=== PATIENT | female | born 1995 | race Caucasian/White ===

== ENCOUNTER → 2017-12-04 | Outpatient (CLI) | payer BC | LOC: M RAD 17:24 | DX: Z34.82 Encounter for supervision of other normal pregnancy, second trimester (principal) ==

== ENCOUNTER → 2018-01-23 | Outpatient (CLI) | payer BC | LOC: M RAD 17:11 | DX: Z34.82 Encounter for supervision of other normal pregnancy, second trimester (principal); Z36.89 Encounter for other specified antenatal screening; Z3A.27 27 weeks gestation of pregnancy | CPT/HCPCS: 76816 ==

== ENCOUNTER → 2018-03-03 | Outpatient (CLI) | payer BC | LOC: M RAD 11:39 | DX: O36.5932 Maternal care for other known or suspected poor fetal growth, third trimester, fetus 2 (principal); Z3A.31 31 weeks gestation of pregnancy | CPT/HCPCS: 76816 ==

== ENCOUNTER → 2018-04-02 | Outpatient (CLI) | payer BC | LOC: M RAD 17:20 | DX: O09.293 Supervision of pregnancy with other poor reproductive or obstetric history, third trimester (principal); Z3A.35 35 weeks gestation of pregnancy | CPT/HCPCS: 76816 ==

== ENCOUNTER → 2018-04-03 | Outpatient (REF) | payer BC | LOC: M LAB REF 17:03 | DX: Z34.83 Encounter for supervision of other normal pregnancy, third trimester (principal); Z3A.00 Weeks of gestation of pregnancy not specified | CPT/HCPCS: 87186 ==

== ENCOUNTER 2018-04-18 03:53 | Inpatient (IN) | payer BC ==
[2018-04-18] MEDS ORDERED: LR 1,000 ML IV (04:35)
[2018-04-18] MEDS: BICITRA 30ML SOLN UDC PO (04:45)
[2018-04-18 04:51] LABS: HEMATOCRIT 41.1 % (36.0-47.0); HEMOGLOBIN 13.8 g/dl (12.0-15.5); MEAN CORPUSCULAR HEMOGLOBIN 28.3 pg (27.0-33.0); MEAN CORPUSCULAR HGB CONC 33.6 g/dl (32.0-36.5); MEAN CORPUSCULAR VOLUME 84.4 fl (80.0-96.0); PLATELET COUNT, AUTOMATED 292 10^3/uL (150-450); RED BLOOD COUNT 4.87 10^6/uL (4.00-5.40); RED CELL DISTRIBUTION WIDTH 14.5 % (11.5-14.5); WHITE BLOOD COUNT 13.6 10^3/uL (4.0-10.0)
[2018-04-18 05:16] LABS: ALT/SGPT 39 U/L (12-78); AST/SGOT 17 U/L (7-37); BILIRUBIN,TOTAL 0.4 MG/DL (0.2-1.0); CREATININE FOR GFR 0.63 MG/DL (0.55-1.30); GLOMERULAR FILTRATION RATE > 60.0 (>60); LDH LACTATE DEHYDROGENASE 155 U/L (84-246); URIC ACID 4.8 MG/DL (2.6-6.0)
[2018-04-18] MEDS ORDERED: NALBUPHINE HCL 10 MG/ML AMP (J2300) IV ×2 (06:11→07:30)
[2018-04-18] MEDS ORDERED: METOCLOPRAMIDE INJ 10MG/2ML VIAL (J2765) IV (06:11)
[2018-04-18] MEDS ORDERED: ONDANSETRON 4MG/2ML VIAL (J2405) IV ×2 (06:11→07:30)
[2018-04-18] MEDS ORDERED: NALOXONE INJ 0.4 MG/1 ML VIAL (J2310) IV ×2 (06:11)
[2018-04-18] MEDS ORDERED: MORPHINE PRES-FREE INJ 10 MG/10 ML VIAL (J2274) As Ordered (06:32)
[2018-04-18] MEDS ORDERED: fentaNYL 100 MCG/2 ML INJECTION (J3010) As Ordered (06:32)
[2018-04-18] MEDS ORDERED: PHENYLephrine HCL 500 MCG/5 ML (100MCG/ML) SYRINGE (J2370) As Ordered (06:32)
[2018-04-18] MEDS ORDERED: OXYTOCIN INJ 10 UNITS/ML VIAL (J2590) As Ordered ×3 (06:32)
[2018-04-18] MEDS ORDERED: KETOROLAC 60 MG/2 ML VIAL (J1885) As Ordered (06:32)
[2018-04-18] MEDS ORDERED: ONDANSETRON 4MG/2ML VIAL (J2405) As Ordered (06:32)
[2018-04-18] MEDS ORDERED: fentaNYL 250 MCG/5 ML INJECTION (J3010) As Ordered (06:32)
[2018-04-18 07:27] LABS: CORD GAS ABE V -4.3; CORD GAS HCO3 V 21.1 MEQ/L; CORD GAS O2 SAT V 50.2 %; CORD GAS PCO2 V 40.1 mmHg; CORD GAS PH V 7.339 UNITS; CORD GAS PO2 V 23.6 mmHg; CORD GAS SBC V 19.7 MEQ/L; CORD GAS TCO2 V 22.3 MEQ/L
[2018-04-18] MEDS ORDERED: fentaNYL 100 MCG/2 ML INJECTION (J3010) IV (07:30)
[2018-04-18 07:31] LABS: CORD GAS ABE A -3.6; CORD GAS HCO3 A 24.8 MEQ/L; CORD GAS O2 SAT A 20.2 %; CORD GAS PCO2 A 57.8 mmHg; CORD GAS PH A 7.251 UNITS; CORD GAS PO2 A 12.9 mmHg; CORD GAS SBC A 19.4 MEQ/L; CORD GAS TCO2 A 26.6 MEQ/L
[2018-04-18] MEDS ORDERED: DOCUSATE SODIUM 100 MG CAP PO (08:00)
[2018-04-18] MEDS ORDERED: MOM 30ML SUSPENSION UDC PO (08:00)
[2018-04-18] MEDS: ONDANSETRON 4MG/2ML VIAL (J2405) IV (08:43)
[2018-04-18] MEDS: ePHEDrine SULFATE 25 MG/5 ML(5MG/ML) SYRINGE IV ×3 (08:50→08:55)
[2018-04-18] MEDS: LACTATED RINGER'S 1000 ML IV (08:53)
[2018-04-18] MEDS: PRENATAL VITAMINS CHEWABLE TABLET PO (09:00)
[2018-04-18] MEDS: PERCOCET 5MG/325MG TAB PO ×2 (09:10→09:11)
[2018-04-18] MEDS: OXYTOCIN DRIP 30 UNITS in APPROPRIATE DILUENT 1 EA IV (10:02)
[2018-04-18 11:08] LABS: HEMATOCRIT 32.5 % (36.0-47.0); MEAN CORPUSCULAR HEMOGLOBIN 28.5 pg (27.0-33.0); MEAN CORPUSCULAR HGB CONC 32.9 g/dl (32.0-36.5); MEAN CORPUSCULAR VOLUME 86.4 fl (80.0-96.0); PLATELET COUNT, AUTOMATED 355 10^3/uL (150-450); RED BLOOD COUNT 3.76 10^6/uL (4.00-5.40); RED CELL DISTRIBUTION WIDTH 14.6 % (11.5-14.5)
[2018-04-18 11:22] LABS: POS COUNT POS FLAG
[2018-04-18 11:23] LABS: HEMOGLOBIN 10.7 g/dl (12.0-15.5); WHITE BLOOD COUNT 30.8 10^3/uL (4.0-10.0)
[2018-04-18] MEDS: BACLOFEN 10 MG TAB PO ×2 (12:12→17:02)
[2018-04-18] MEDS: AMPICILLIN SOD/SULBACTAM SOD 3 GM in D5W MINI-BAG PLUS 100 ML IV ×3 (12:13→23:49)
[2018-04-18] MEDS: LR 1,000 ML IV ×4 (12:13→22:36)
[2018-04-18] MEDS: KETOROLAC 30 MG/ML VIAL (J1885) IV ×2 (13:07→19:27)
[2018-04-18 15:52] LABS: HEMATOCRIT 28.6 % (36.0-47.0); HEMOGLOBIN 9.4 g/dl (12.0-15.5); MEAN CORPUSCULAR HEMOGLOBIN 28.4 pg (27.0-33.0); MEAN CORPUSCULAR HGB CONC 32.9 g/dl (32.0-36.5); MEAN CORPUSCULAR VOLUME 86.4 fl (80.0-96.0); PLATELET COUNT, AUTOMATED 339 10^3/uL (150-450); RED BLOOD COUNT 3.31 10^6/uL (4.00-5.40); RED CELL DISTRIBUTION WIDTH 14.9 % (11.5-14.5); WHITE BLOOD COUNT 26.1 10^3/uL (4.0-10.0)
[2018-04-18 15:57] LABS: APPEARANCE, URINE HAZY (CLEAR); BACTERIA, URINE AUTO NEGATIVE (NEGATIVE); BILIRUBIN, URINE AUTO NEGATIVE (NEGATIVE); BLOOD, URINE BLOOD 2+ (NEGATIVE); COLOR, URINE AMBER (YELLOW); GLUCOSE, URINE (UA) AUTO 1+ mg/dL (NEGATIVE); KETONE, URINE AUTO NEGATIVE (NEGATIVE); LEUKOCYTE ESTERASE, URINE AUTO NEGATIVE (NEGATIVE); MUCUS, URINE SMALL (NEGATIVE); NITRITE, URINE AUTO NEGATIVE (NEGATIVE); PROTEIN, URINE AUTO 1+ mg/dL (NEGATIVE); RBC, URINE AUTO 147 /HPF (0-3); SPECIFIC GRAVITY URINE AUTO 1.027 (1.002-1.035); SQUAMOUS EPITHELIAL CELL UR AU 0 /HPF (0-6); WBC, URINE AUTO 7 /HPF (0-3)
[2018-04-18 16:18] LABS: ALBUMIN 2.1 GM/DL (3.2-5.2); ALBUMIN/GLOBULIN RATIO 0.64 (1.00-1.93); ALKALINE PHOSPHATASE 106 U/L (45-117); ALT/SGPT 31 U/L (12-78); ANION GAP 13 MEQ/L (8-16); AST/SGOT 20 U/L (7-37); BILIRUBIN,TOTAL 0.5 MG/DL (0.2-1.0); BLOOD UREA NITROGEN 7 MG/DL (7-18); CALCIUM LEVEL 7.9 MG/DL (8.5-10.1); CARBON DIOXIDE LEVEL 19 MEQ/L (21-32); CHLORIDE LEVEL 106 MEQ/L (98-107); CREATININE FOR GFR 1.02 MG/DL (0.55-1.30); GLOMERULAR FILTRATION RATE > 60.0 (>60); GLUCOSE, FASTING 104 MG/DL (70-100); POTASSIUM SERUM 4.4 MEQ/L (3.5-5.1); SODIUM LEVEL 138 MEQ/L (136-145); TOTAL PROTEIN 5.4 GM/DL (6.4-8.2)
[2018-04-18] MEDS ORDERED: GASTROGRAFIN SOLUTION 30ML PO (16:20)
[2018-04-18] MEDS ORDERED: MORPHINE 4 MG/ML 1ML VIAL/SYRINGE (J2270) IV (18:00)
[2018-04-18] MEDS ORDERED: PILL CRUSHER/CUTTER 1 EACH XX (18:15)
[2018-04-18] MEDS: FUROSEMIDE 20 MG/2 ML VIAL (J1940) IV (18:34)
[2018-04-18] MEDS: BACLOFEN 5MG PER 1/2 TABLET PO ×2 (19:26→21:00)
[2018-04-18] MEDS ORDERED: BACLOFEN 10 MG TAB PO (21:00)
[2018-04-19] MEDS: KETOROLAC 30 MG/ML VIAL (J1885) IV (01:09)
[2018-04-19] MEDS: AMPICILLIN SOD/SULBACTAM SOD 3 GM in D5W MINI-BAG PLUS 100 ML IV (06:00)
[2018-04-19 07:11] LABS: HEMATOCRIT 21.1 % (36.0-47.0); MEAN CORPUSCULAR HEMOGLOBIN 28.4 pg (27.0-33.0); MEAN CORPUSCULAR HGB CONC 32.7 g/dl (32.0-36.5); MEAN CORPUSCULAR VOLUME 86.8 fl (80.0-96.0); RED BLOOD COUNT 2.43 10^6/uL (4.00-5.40); RED CELL DISTRIBUTION WIDTH 14.8 % (11.5-14.5); WHITE BLOOD COUNT 14.7 10^3/uL (4.0-10.0)
[2018-04-19 07:15] LABS: HEMOGLOBIN 6.9 g/dl (12.0-15.5)
[2018-04-19 07:16] LABS: PLATELET COUNT, AUTOMATED 220 10^3/uL (150-450)
[2018-04-19] MEDS: LR 1,000 ML IV (08:19)
[2018-04-19] MEDS: diphenhydrAMINE 50 MG CAP PO (08:28)
[2018-04-19] MEDS: INFLUENZA QUADRIVALENT PF VACCINE 0.5ML SYRINGE (90686) IM (09:00)
[2018-04-19] MEDS: PRENATAL VITAMINS CHEWABLE TABLET PO (09:51)
[2018-04-19] MEDS: IBUPROFEN 800 MG TAB PO ×2 (09:53→17:06)
[2018-04-19] MEDS: BACLOFEN 5MG PER 1/2 TABLET PO ×3 (09:53→21:55)
[2018-04-19] MEDS: PERCOCET 5MG/325MG TAB PO (10:27)
[2018-04-19 11:35] LABS: IMMEDIATE SPIN CROSSMATCH 1 2
[2018-04-19] MEDS: RHOGAM 300 MCG (1500 IU) INJ (J2790) IM (12:24)
[2018-04-19] MEDS: MEASLES,MUMPS,RUBELLA VACCINE INJ (MMR-II) (90707) SC (12:24)
[2018-04-19] MEDS: SLF 3 ML SYR IV ×2 (15:00→22:00)
[2018-04-19 18:38] LABS: HEMATOCRIT 26.1 % (36.0-47.0); HEMOGLOBIN 8.7 g/dl (12.0-15.5); MEAN CORPUSCULAR HGB CONC 33.3 g/dl (32.0-36.5); PLATELET COUNT, AUTOMATED 236 10^3/uL (150-450); RED CELL DISTRIBUTION WIDTH 14.6 % (11.5-14.5); WHITE BLOOD COUNT 15.7 10^3/uL (4.0-10.0)
[2018-04-20] MEDS: IBUPROFEN 800 MG TAB PO ×2 (01:00→09:14)
[2018-04-20] MEDS: SLF 3 ML SYR IV (06:00)
[2018-04-20] MEDS: BACLOFEN 5MG PER 1/2 TABLET PO (09:13)
[2018-04-20] MEDS: PRENATAL VITAMINS CHEWABLE TABLET PO (09:13)
[2018-04-20] MEDS: PERCOCET 5MG/325MG TAB PO (11:56)
== END 2018-04-20 12:15 | disposition home or self-care (01) | DRG 540 ==
LOC: M LDO 03:53 → M LDI 04:23 → M OBS 09:08
PROC: 10D00Z1 Extraction of Products of Conception, Low, Open Approach (ICD-10-PCS; principal; 2018-04-18)
PROC: 30233N1 Transfusion of Nonautologous Red Blood Cells into Peripheral Vein, Percutaneous Approach (ICD-10-PCS; 2018-04-19)
DX: O99.344 Other mental disorders complicating childbirth (principal); O13.4 Gestational [pregnancy-induced] hypertension without significant proteinuria, complicating childbirth; O72.1 Other immediate postpartum hemorrhage; O99.824 Streptococcus B carrier state complicating childbirth; O75.82 Onset (spontaneous) of labor after 37 completed weeks of gestation but before 39 completed weeks gestation, with delivery by (planned) cesarean section; F43.8 Other reactions to severe stress; Z3A.38 38 weeks gestation of pregnancy; Z37.0 Single live birth

== ENCOUNTER → 2021-04-24 | Outpatient (CLI) | payer BC ==
[~2021-04-24] MED LIST: BACL5TAB2 PO; COLA100C5 PO; IBUP-1114 PO; MOM30SS PO; PERCOCET PO; PRENTAB9 PO; RANI15TA PO
--- NOTE | 2021-04-24 14:30 | REP ---
INDICATION: CONFIRM DATING. COMPARISON: None. TECHNIQUE: Real-time sonographic evaluation of the gravid uterus performed. FINDINGS: Estimated gestational age is14 weeks 3 days, EDC 10/20/2021. Presentation: Variable Placenta fundal, posterior, grade 0, without evidence of placenta previa. heart rate is recorded at 160 beats per minute. Amniotic fluid is subjectively normal. Closed cervical length is measured at 5.2 cm. Biometry chart: BPD: 26 mm, 14 weeks 4 days, 57th percentile. HC: 101 mm, 14 weeks 5 days, 61st percentile AC: 79 mm, 14 weeks 2 days, 46th percentile Femur length: 14 mm, 14 weeks 0 days, 35th percentile HC to AC ratio: 1.29, normal range 1.11-1.30. Estimated weight: 92g, 22nd percentile. IMPRESSION: Viable single intrauterine gestation as above. <Electronically signed by Luisito Middleton > 04/24/21 [id number]
== END ==
LOC: M WHC 08:31
PROVIDERS: ATTEND Advanced Practice Midwife
DX: O34.211 Maternal care for low transverse scar from previous cesarean delivery (principal); Z3A.15 15 weeks gestation of pregnancy

== ENCOUNTER → 2021-06-01 | Outpatient (CLI) | payer BC | LOC: M RAD 15:54 | PROVIDERS: ATTEND Specialist | DX: Z36.3 Encounter for antenatal screening for malformations (principal); Z3A.19 19 weeks gestation of pregnancy ==

== ENCOUNTER → 2021-07-09 | Outpatient (CLI) | payer BC | LOC: M WHC 09:44 | PROVIDERS: ATTEND Specialist | DX: Z34.82 Encounter for supervision of other normal pregnancy, second trimester (principal); Z3A.25 25 weeks gestation of pregnancy ==

== ENCOUNTER → 2021-09-27 | Outpatient (REF) | payer BC | LOC: M SFHCWAGY 16:58 | PROVIDERS: ATTEND Specialist | DX: Z36.89 Encounter for other specified antenatal screening (principal) ==

== ENCOUNTER → 2021-10-10 | Outpatient (CLI) | payer BC | LOC: M LABSMTC 09:19 | PROVIDERS: ATTEND Specialist | DX: Z11.52 Encounter for screening for COVID-19 (principal); Z20.822 Contact with and (suspected) exposure to COVID-19 ==

== ENCOUNTER 2021-10-15 05:15 | Inpatient (IN) | payer BC ==
[~2021-10-15] VITALS: Ht 167.6 cm; Wt 104.2 kg
[2021-10-15] VITALS (7 sets, daily range): BP systolic 124–159; BP diastolic 75–95
[2021-10-15] MEDS ORDERED: ceFAZolin SOD 2 GM in IV 1 EA IV ONE (05:40)
[2021-10-15] MEDS ORDERED: BICITRA 30ML SOLN UDC PO ONE (05:40)
[2021-10-15] MEDS ORDERED: LACTATED RINGER'S 1000 ML IV ONE ×2 (06:50→18:30)
[2021-10-15] MEDS ORDERED: LR 1,000 ML IV SCH (06:50)
[2021-10-15 07:00] LABS: HEMATOCRIT 36.4 % (36.0-47.0); HEMOGLOBIN 12.6 g/dl (12.0-15.5); MEAN CORPUSCULAR HEMOGLOBIN 29.2 pg (27.0-33.0); MEAN CORPUSCULAR HGB CONC 34.6 g/dl (32.0-36.5); MEAN CORPUSCULAR VOLUME 84.5 fl (80.0-96.0); PLATELET COUNT, AUTOMATED 319 10^3/uL (150-450); RED BLOOD COUNT 4.31 10^6/uL (4.00-5.40); WHITE BLOOD COUNT 12.8 10^3/uL (4.0-10.0)
[2021-10-15] MEDS ORDERED: OXYTOCIN INJ 10 UNITS/ML VIAL (J2590) As Ordered ONE (07:06)
[2021-10-15] MEDS ORDERED: MORPHINE PRES-FREE INJ 10 MG/10 ML VIAL As Ordered ONE (07:11)
[2021-10-15] MEDS ORDERED: diphenhydrAMINE 50MG/ML VIAL (J1200) IV PRN (08:00)
[2021-10-15] MEDS ORDERED: METOCLOPRAMIDE INJ 10MG/2ML VIAL (J2765 PER 1) IV PRN (08:00)
[2021-10-15] MEDS ORDERED: ONDANSETRON 4MG/2ML VIAL IV PRN ×2 (08:00→09:35)
[2021-10-15] MEDS ORDERED: NALOXONE INJ 0.4MG/1ML VIAL (J2310 PER 1MG) IV PRN ×2 (08:00)
[2021-10-15] MEDS ORDERED: PHENYLephrine 500MCG 5ML (100MCG/ML) SYRINGE As Ordered ONE (08:15)
[2021-10-15] MEDS ORDERED: ONDANSETRON 4MG/2ML VIAL As Ordered ONE (08:28)
[2021-10-15] MEDS ORDERED: dexameTHASONE 4 MG/ML 1ML VIAL (J1100 PER 1MG) As Ordered ONE (08:29)
[2021-10-15] MEDS ORDERED: propofoL 200 MG/20 ML VIAL As Ordered ONE (08:39)
[2021-10-15] MEDS ORDERED: KETOROLAC 60MG 2ML VIAL As Ordered ONE (09:06)
[2021-10-15] MEDS ORDERED: RHOGAM 300 MCG (1500 IU) INJ (J2790) IM SCH (09:10)
[2021-10-15] MEDS ORDERED: MEASLES,MUMPS,RUBELLA VACCINE INJ (MMR-II) (90707) SC SCH (09:10)
[2021-10-15] MEDS ORDERED: PERCOCET 5MG/325MG TAB PO PRN ×2 (09:10)
[2021-10-15] MEDS ORDERED: DOCUSATE SODIUM 100MG CAPSULE PO PRN (09:10)
[2021-10-15] MEDS ORDERED: OXYTOCIN DRIP 30 UNITS in IV 1 EA IV SCH (09:10)
[2021-10-15] MEDS ORDERED: SIMETHICONE 80MG CHEW TAB PO PRN (09:10)
[2021-10-15] MEDS ORDERED: IBUP80TA PO (09:13)
[2021-10-15] MEDS ORDERED: oxyCODONE 5MG TAB PO PRN (09:35)
[2021-10-15] MEDS ORDERED: fentaNYL 100 MCG/2 ML INJECTION IV PRN (09:35)
[2021-10-15] MEDS ORDERED: OXYTOCIN 30 UNITS IN 0.9% NaCl 500ML IV BAG (J2590) As Ordered ONE (09:50)
[2021-10-15] MEDS: LR 1,000 ML IV SCH ×2 (14:11→21:09)
[2021-10-15] MEDS: KETOROLAC 30 MG/ML 1ML VIAL IV SCH ×2 (15:04→20:51)
[2021-10-16] MEDS ORDERED: UNRESOLVED CLARIFICATION ENTRY XX SCH (00:01)
[2021-10-16] MEDS: LR 1,000 ML IV SCH (01:10)
[2021-10-16 02:05] VITALS: BP 114/81
[2021-10-16] MEDS: KETOROLAC 30 MG/ML 1ML VIAL IV SCH (03:01)
[2021-10-16 05:59] VITALS: BP 132/83
[2021-10-16] MEDS ORDERED: OXYC1TAB23 PO (06:44)
[2021-10-16 08:55] LABS: HEMATOCRIT 23.3 % (36.0-47.0); HEMOGLOBIN 7.8 g/dl (12.0-15.5); MEAN CORPUSCULAR HGB CONC 33.5 g/dl (32.0-36.5); MEAN CORPUSCULAR VOLUME 86.6 fl (80.0-96.0); PLATELET COUNT, AUTOMATED 264 10^3/uL (150-450); RED BLOOD COUNT 2.69 10^6/uL (4.00-5.40); WHITE BLOOD COUNT 12.9 10^3/uL (4.0-10.0)
[2021-10-16] MEDS: PRENATAL VITAMINS CHEWABLE TABLET PO SCH (09:59)
[2021-10-16] MEDS: IBUPROFEN 800 MG TAB PO SCH ×2 (09:59→18:02)
[2021-10-16 10:10] VITALS: BP 122/66
[2021-10-16 18:25] VITALS: BP 122/73
[2021-10-16 22:40] VITALS: BP 122/64
[2021-10-17 02:00] VITALS: BP 122/66
[2021-10-17] MEDS: IBUPROFEN 800 MG TAB PO SCH ×2 (04:30→10:41)
[2021-10-17 06:00] VITALS: BP 114/57
[2021-10-17] MEDS: PRENATAL VITAMINS CHEWABLE TABLET PO SCH (09:35)
[2021-10-17 10:00] VITALS: BP 127/77
== END 2021-10-17 12:30 | disposition home or self-care (01) | DRG 540 ==
LOC: M LDI 05:15 → M OBS 10:40
PROVIDERS: ADMIT Specialist; ATTEND Specialist
PROC: 10D00Z1 Extraction of Products of Conception, Low, Open Approach (ICD-10-PCS; principal; 2021-10-15 07:30)
DX: O34.211 Maternal care for low transverse scar from previous cesarean delivery (principal); Z37.0 Single live birth; Z3A.39 39 weeks gestation of pregnancy